=== PATIENT | female | born 1970 | race Two or more races ===

== ENCOUNTER 2019-05-29 08:48 | Emergency (ER) | payer OTHER ==
[~2019-05-29] VITALS: Ht 149.9 cm; Wt 63.5 kg
[2019-05-29] MEDS ORDERED: ZANTAC25 MG/1 M1 PO (09:09)
[2019-05-29] MEDS ORDERED: ZYRTEC10 M3 PO (09:09)
[2019-05-29] MEDS ORDERED: FORTAMET500 MG PO (09:09)
== END 2019-05-29 13:27 | disposition home or self-care (01) ==
LOC: ER 08:48
DX: T78.49XA Other allergy, initial encounter (principal); X58.XXXA Exposure to other specified factors, initial encounter